=== PATIENT | male | born 2000 | race African-American/Black ===

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

== ENCOUNTER 2021-02-05 14:00 | Emergency (ER) | payer OTHER | END 2021-02-05 17:31 | disposition home or self-care (01) | LOC: ERS 14:00 | DX: G56.03 Carpal tunnel syndrome, bilateral upper limbs (principal); M65.4 Radial styloid tenosynovitis [de Quervain]; F17.210 Nicotine dependence, cigarettes, uncomplicated | CPT/HCPCS: 29125 ==

== ENCOUNTER 2021-09-13 16:57 | Emergency (ER) | payer OTHER ==
[2021-09-13] MEDS ORDERED: Ibuprofen 200 MG TAB ONE (19:42)
== END 2021-09-13 19:00 | disposition home or self-care (01) ==
LOC: ERS 16:57
DX: J02.9 Acute pharyngitis, unspecified (principal)
CPT/HCPCS: 87081; 87430; 99283

== ENCOUNTER 2021-09-30 18:32 | Emergency (ER) | payer OTHER, SELFPAY | END 2021-09-30 23:26 | disposition home or self-care (01) | LOC: ERS 18:32 | DX: R19.7 Diarrhea, unspecified (principal) | CPT/HCPCS: 99284 ==

== ENCOUNTER 2021-10-21 16:28 | Emergency (ER) | payer SELFPAY | END 2021-10-21 16:54 | disposition home or self-care (01) | LOC: ERS 16:28 | DX: R05.9 Cough, unspecified (principal) | CPT/HCPCS: 99281 ==

== ENCOUNTER 2023-06-07 18:10 | Emergency (ER) | payer SELFPAY | END 2023-06-07 19:20 | disposition home or self-care (01) | LOC: ERS 18:10 | DX: M54.9 Dorsalgia, unspecified (principal) | CPT/HCPCS: 96372 ==

== ENCOUNTER 2023-07-07 16:38 | Emergency (ER) | payer SELFPAY ==
[2023-07-07 17:21] LABS: Bilirubin Negative (Negative); Blood, Urine 1+ (Negative); CAUTI Indications for Culture Pelvic or flank pain; Clarity Turbid (Clear); Glucose, Urine (Dipstick) Normal (Negative); Ketone, Urine Negative (Negative); Leukocyte 500 Leu/uL (Negative); Nitrite Negative (Negative); Protein, Urine (Dipstick) Negative (Neg-Trace); RBC/HPF 0-3 HPF (0-3); Specific Gravity, Urine 1.006 (1.002-1.036); Squamous Epithelial 0-3 HPF (0-3); Urobilinogen Normal mg/dL (Less than 2); WBC/HPF Greater than 50 HPF (0-3); pH, Urine 6.5 (5.0-9.0)
[2023-07-07] MEDS ORDERED: Lidocaine 1% MPF 2 ML VIAL ONE (17:23)
[2023-07-07] MEDS ORDERED: cefTRIAXone (ROCEPHIN) 500 MG VIAL ONE (17:23)
[2023-07-07 17:29] LABS: Bacteria/HPF 1+ HPF (None Seen)
[2023-07-07 17:30] LABS: Urine Culture Reflex Yes Yes
[2023-07-07 21:21] LABS: GC N.gonorrhoeae PCR,UrineVOID DETECTED (NotDetected)
[2023-07-08 01:06] LABS: Chlam.trachomatis by PCR,Urine DETECTED (NotDetected)
== END 2023-07-07 17:56 | disposition home or self-care (01) ==
LOC: ERS 16:38
DX: N34.1 Nonspecific urethritis (principal); F17.290 Nicotine dependence, other tobacco product, uncomplicated
CPT/HCPCS: 81001; 87086; 87491; 87591; 96372; 99283; J0696

== ENCOUNTER 2023-10-12 20:23 | Emergency (ER) | payer SELFPAY | END 2023-10-12 22:26 | disposition home or self-care (01) | LOC: ERS 20:23 | DX: L02.01 Cutaneous abscess of face (principal); L03.211 Cellulitis of face | CPT/HCPCS: 99283 ==

== ENCOUNTER 2024-05-16 12:16 | Emergency (ER) | payer SELFPAY ==
[2024-05-16] MEDS ORDERED: Orphenadrine Citrate 60 MG/2 ML VIAL ONE (13:57)
== END 2024-05-16 14:15 | disposition home or self-care (01) ==
LOC: ERS 12:16
DX: M54.2 Cervicalgia (principal); Z55.6 Problems related to health literacy
CPT/HCPCS: 96372; 99282; J2360

== ENCOUNTER 2024-12-26 19:32 | Emergency (ER) | payer SELFPAY | END 2024-12-26 21:59 | disposition home or self-care (01) | LOC: ERS 19:32 | DX: J02.0 Streptococcal pharyngitis (principal) | CPT/HCPCS: 87081; 87428; 87430; 99283 ==